=== PATIENT | male | born 2000 | race Two or more races ===

== ENCOUNTER 2025-09-05 13:58 | Emergency (ER) | payer OTHER ==
[~2025-09-05] VITALS: Ht 154.9 cm; Wt 79.6 kg
[2025-09-05] MEDS: KETOROLAC 60 MG/2 ML VIAL IM ONE (17:59)
[2025-09-05 18:04] VITALS: O2SAT 100
[2025-09-05 19:41] VITALS: BP 141/78; TEMP 97.8
== END 2025-09-05 19:43 | disposition home or self-care (01) ==
LOC: M ED 13:58
DX: R07.89 Other chest pain (principal); F10.10 Alcohol abuse, uncomplicated; Z87.891 Personal history of nicotine dependence
CPT/HCPCS: 71046; 93005; 96372; 99284; J1885